=== PATIENT | male | born 1960 | race Caucasian/White ===

== ENCOUNTER 2024-08-06 07:25 | Emergency (ER) | payer SELFPAY ==
[2024-08-06] VITALS (10 sets, daily range): BP systolic 138–159; BP diastolic 97–108; PULSE 77–88; RESP 10–26; O2SAT 93–97; BMI 29.8
--- NOTE | 2024-08-06 07:35 | EKG_ITS ---
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
--- NOTE | 2024-08-06 07:38 | DI.RAD.S_ITS ---
PROCEDURE: XR CHEST 1V INDICATIONS: chest pain TECHNIQUE: One view of the chest was acquired. COMPARISON: [facility], CR, XR CHEST 1 VIEW, 06/21/2023, 10:22. [facility], CR, XR CHEST 2 VIEWS, 06/21/2023, 12:49. FINDINGS: Surgical changes and devices: An AICD is seen. The leads are seen in stable positions. Lungs and pleura: An incomplete inspiratory result is noted, causing a crowded appearance to the lung markings. No focal infiltrates are seen. No pneumothorax or significant pleural effusions are seen. Mediastinum: Mediastinal contours appear normal. Heart size is normal. Bones and chest wall: Age-appropriate bony degenerative changes are seen. No suspicious bony lesions. Overlying soft tissues appear unremarkable. IMPRESSION: Low lung volumes, without an acute abnormality seen by plain film. Postoperative and degenerative changes are seen. Dictated by: Dylan Muñoz M.D. on 08/06/2024 at 7:56 Approved by: Dylan Muñoz M.D. on 08/06/2024 at 7:57
--- NOTE | 2024-08-06 07:45 | ED.ARRPALP ---
HPI - Arrhythmia/Palpitations General Chief Complaint: Arrhythmia/Palpitations Stated Complaint: has pacemaker and defibrillator went off Time Seen by Provider: 08/06/24 07:45 Source: patient Mode of arrival: Ambulatory History of Present Illness HPI narrative: 63-year-old gentleman history of AICD pacemaker placed at over year ago at [facility] for a low ejection fraction of 20%, heart failure dyslipidemia was golfing this morning with his son at approximately 7:15 a.m. when the pacemaker spontaneously discharged and and shocked him. He did not lose consciousness, denies chest pain, shortness of breath, dyspnea on exertion, headache, dizziness, or weakness at this time. Other than what is stated 14 point review of system is negative Related Data Previous Rx's Medication Instructions Recorded apixaban 5 mg tablet (Eliquis) 5 mg PO BID #60 tabs 08/06/24 metoprolol succinate 50 mg 50 mg PO BID #60 tabs 08/06/24 tablet,extended release 24 hr Allergies Allergy/AdvReac Type Severity Reaction Status Date / Time No Known Drug Allergies Allergy Verified 08/06/24 07:34 Review of Systems Review of Systems ROS Unobtainable: All systems reviewed & are unremarkable except as noted in HPI and below Patient History Social History Smoking Status: Never smoker Smoking Status: Never smoker Exam Narrative Exam Narrative: GENERAL: [63] year old patient appears stated age. Well-developed patient, in mild distress. HEAD: Atraumatic. Normocephalic. EYES: Pupils equal round and reactive. Extraocular motions intact. No scleral icterus. No injection or drainage. NECK: Trachea midline. Non tender CARDIOVASCULAR: Regular rate and rhythm without murmurs, gallops, or rubs. RESPIRATORY: Clear to auscultation. Breath sounds equal bilaterally. No wheezes, rales, or rhonchi. GASTROINTESTINAL: Abdomen soft, non-tender, nondistended. EXTREMITIES: No edema or joint tenderness. BACK: Nontender without deformity or crepitance. No flank tenderness. NEURO: AOx3. SKIN: No rash or erythema of visible areas Initial Vital Signs Initial Vital Signs: Vital Signs Pulse Rate 88 08/06/24 07:34 Respiratory Rate 18 08/06/24 07:34 Blood Pressure 158/100 H 08/06/24 07:34 Pulse Oximetry 97 08/06/24 07:34 Oxygen Delivery Method Room Air 08/06/24 07:34 Scores HEART Score Heart Score history: Slightly Suspicious Heart Score EKG: Normal Heart Score Age: > or = 65 years old Heart Score risk factors: 1-2 risk factors Heart Score troponin: < or = to normal limit Heart Score Total: 3 Course Orders Ordered: ED Orders 08/06/24 07:34 Complete Blood Count AUTO DIFF Stat Comprehensive Metabolic Panel Stat Lipase Stat Magnesium Stat NT-proBNP (BNP-Adult 18+) Stat PTT Partial Thromboplastin Noah Stat Prothrombin Time INR Stat Troponin & CK Cardiac Panel Stat 08/06/24 07:38 XR chest 1V Stat EKG-12 Lead Stat Vital Signs Vital signs: Vital Signs - 8 hr 08/06/24 07:34 Pulse Rate 88 Respiratory Rate 18 Blood Pressure 158/100 H Pulse Oximetry 97 Oxygen Delivery Method Room Air MDM - Arrhythmia/Palpitations Lab Data 08/06/24 07:34 08/06/24 07:34 Labs: Lab Results 08/06/24 Range/Units 07:34 WBC 7.8 (4.5-11.0) X10^3/uL RBC 5.93 H (4.5-5.9) X10^6/uL Hgb 16.3 (13.5-17.5) g/dL Hct 48.3 (41-53) % MCV 81.5 (80-100) fL MCH 27.5 (26-34) PG MCHC 33.7 (30-36) % RDW 14.3 (11.6-14.8) % Plt Count 163 (150-400) X10^3/uL Neut % (Auto) 63.5 (50-75) % Lymph % (Auto) 23.0 L (25-40) % [place] % (Auto) 10.8 (3-14) % Eos % (Auto) 2.2 (2-4) % Baso % (Auto) 0.5 (0-2) % Neut # (Auto) 5000 (4147-1605) /uL Lymph # (Auto) 1800 (3531-6595) /uL [place] # (Auto) 800 (0-900) /uL Eos # (Auto) 200 (0-450) /uL Baso # (Auto) 0 (0-100) /uL PT 11.4 (9.4-12.5) SECONDS INR 1.0 (0.9-1.3) APTT 34 (25.1-36.5) SECONDS Sodium 141 (137-145) mmol/L Potassium 3.7 (3.4-5.1) mmol/L Chloride 106 (98-107) mmol/L Carbon Dioxide 25 (22-32) mmol/L BUN 21 H (9-20) mg/dL Creatinine 1.07 (0.66-1.25) mg/dL Estimated GFR > 60 (>60) mL/min BUN/Creatinine Ratio 19.6 (6-22) Glucose 96 (80-110) mg/dL Calcium 9.9 (8.4-10.2) mg/dL Magnesium 2.1 (1.6-2.3) mg/dL Total Bilirubin 0.7 (0.2-1.3) mg/dL AST 50 (17-59) IU/L ALT 94 H (<50) IU/L Alkaline Phosphatase 93 (38-126) U/L Total Creatine Kinase 118 (55-170) U/L Troponin I < 0.012 (0.01-0.034) ng/mL NT-Pro-B Natriuret Pep 438 H (<125) pg/mL Total Protein 7.8 (6.3-8.2) g/dL Albumin 4.7 (3.5-5.0) g/dL Globulin 3.1 (1.7-4.1) g/dL Albumin/Globulin Ratio 1.5 (1.0-2.8) Lipase 99 (23-300) U/L Imaging Data Chest x-ray: Radiologist's Impresson: [address] [address] XRay Report Signed Patient: Abdon Hoffman MR#: [id number] : 1960 Acct:[id number] Age/Sex: 63 / M Date of Service: 08/06/24 Loc: ED Accession Number: [id number] Procedure: XR chest 1V Ordering Provider: Ashish Cobos D.O. PROCEDURE: XR CHEST 1V INDICATIONS: chest pain TECHNIQUE: One view of the chest was acquired. COMPARISON: [facility], CR, XR CHEST 1 VIEW, 06/21/2023, 10:22. [facility], CR, XR CHEST 2 VIEWS, 06/21/2023, 12:49. FINDINGS: Surgical changes and devices: An AICD is seen. The leads are seen in stable positions. Lungs and pleura: An incomplete inspiratory result is noted, causing a crowded appearance to the lung markings. No focal infiltrates are seen. No pneumothorax or significant pleural effusions are seen. Mediastinum: Mediastinal contours appear normal. Heart size is normal. Bones and chest wall: Age-appropriate bony degenerative changes are seen. No suspicious bony lesions. Overlying soft tissues appear unremarkable. IMPRESSION: Low lung volumes, without an acute abnormality seen by plain film. Postoperative and degenerative changes are seen. ECG Data Attestation: I personally reviewed and interpreted this ECG as follows: Interpretation: NSR HR 86 MI 168 QRS [address]-t wave change No old ekg to compare against MDM Narrative Medical decision making narrative: All lab work vital signs nurse triage note EKG chest x-ray previous records all reviewed. Pacemaker was interrogated here whereby the report shows multiple SVTs and VFib. After speaking with Lakeshia the field service representative for [employer] who did a digger deep dive into the pacemaker firing SVT was actually new onset AFib RVR at 5:30 a.m. were the heart rate went up to 185 and was inappropriately shocked even though it was listed also as VFib but it was actually atrial fibrillation with rapid ventricular response that cardioverted after being inappropriately shocked. Case was discussed with Dr. Chaudhary the auto brake technician director of convention services who wanted to increase the patient's metoprolol dose to 50 mg b.i.d. and to follow up with Dr. Walton in 1 week and also to start on Eliquis and stopped the aspirin. Differential diagnosis includes pacemaker malfunction, STEMI, NSTEMI, CHF. Discharge Plan Departure Patient Disposition: Home Clinical Impression: Atrial fibrillation with rapid ventricular response Instructions: DI for Atrial Fibrillation Activity Restrictions/Additional Instructions: Return with new or worsening symptoms. Follow up with Dr. Walton in 1 week call office for appointment. Metoprolol dosing is now 50 mg twice a day. And to now also start on Eliquis twice a day and to stop aspirin. Prescriptions: New metoprolol succinate 50 mg tablet extended release 24 hr 50 mg PO BID Qty: 60 0RF Eliquis 5 mg tablet 5 mg PO BID Qty: 60 0RF Stand Alone Forms: Patient Portal/API/Survey
[2024-08-06 07:50] LABS: Add Manual Diff / Slide Review NO; Basophils Absolute Auto 0 /uL (0-100); Basophils Percent Auto 0.5 % (0-2); Eosinophils Absolute Auto 200 /uL (0-450); Eosinophils Percent Auto 2.2 % (2-4); Hematocrit 48.3 % (41-53); Hemoglobin 16.3 g/dL (13.5-17.5); Lymphocytes Absolute Auto 1800 /uL (1100-4500); Mean Corpuscular HGB Conc 33.7 % (30-36); Mean Corpuscular Hemoglobin 27.5 PG (26-34); Mean Corpuscular Volume 81.5 fL (80-100); Monocytes Absolute Auto 800 /uL (0-900); Monocytes Percent Auto 10.8 % (3-14); Neutrophils Absolute Auto 5000 /uL (1500-7000); Neutrophils Percent Auto 63.5 % (50-75); Platelet Count 163 X10^3/uL (150-400); Red Blood Cell Count 5.93 X10^6/uL (4.5-5.9); Red Cell Distribution Width 14.3 % (11.6-14.8); White Blood Cell Count 7.8 X10^3/uL (4.5-11.0)
[2024-08-06 07:58] LABS: Prothrombin Time 11.4 SECONDS (9.4-12.5)
[2024-08-06 08:01] LABS: Alanine Aminotransferase 94 IU/L (<50); Albumin 4.7 g/dL (3.5-5.0); Albumin Globulin Ratio 1.5 (1.0-2.8); Alkaline Phosphatase 93 U/L (38-126); Aspartate Aminotransferase 50 IU/L (17-59); BUN Creatinine Ratio 19.6 (6-22); Bilirubin Total 0.7 mg/dL (0.2-1.3); Blood Urea Nitrogen 21 mg/dL (9-20); Calcium 9.9 mg/dL (8.4-10.2); Carbon Dioxide 25 mmol/L (22-32); Chloride 106 mmol/L (98-107); Creatine Kinase 118 U/L (55-170); Estimated Glomerular Filt Rate > 60 mL/min (>60); Globulin 3.1 g/dL (1.7-4.1); Glucose 96 mg/dL (80-110); HEMOLYSIS < 15 (0-50); Lipase 99 U/L (23-300); Magnesium 2.1 mg/dL (1.6-2.3); PTT Partial Thromboplastin Tim 34 SECONDS (25.1-36.5); Potassium 3.7 mmol/L (3.4-5.1); Sodium 141 mmol/L (137-145); Total Protein 7.8 g/dL (6.3-8.2)
[2024-08-06 08:13] LABS: NT-proBNP (BNP-Adult 18+) 438 pg/mL (<125); Troponin I < 0.012 ng/mL (0.01-0.034)
[2024-08-06] MEDS: METOPROLOL ER 50 MG TABLET PO (09:52)
[2024-08-06] MEDS: APIXABAN 5 MG TABLET PO (09:52)
== END 2024-08-06 09:57 | disposition home or self-care (01) ==
PROVIDERS: Emergency Provider Family Medicine
DX: I48.20 Chronic atrial fibrillation, unspecified (principal); Z95.0 Presence of cardiac pacemaker
CPT/HCPCS: 36415; 71045; 80053; 82550; 83690; 83735; 83880; 84484; 85025; 85610; 85730; 93005; 93010; 99284